=== PATIENT | male | born 2005 | race Caucasian/White ===

== ENCOUNTER 2023-01-12 15:49 | Emergency (ER) | payer BC, SELFPAY ==
[2023-01-12 15:55] VITALS: BP 142/79; PULSE 84; RESP 16; TEMP 37; O2SAT 97
--- NOTE | 2023-01-12 16:00 | DI.RAD_ITS ---
Exam(s) XR TIB/FIB RT EXAM: XR TIB/FIB RT CLINICAL HISTORY: fall, miller pain. TECHNIQUE: 2D digital imaging was performed of the right tibia and fibula. Four images were obtained . AP and lateral views were obtained. COMPARISON: No exams were available for comparison FINDINGS: BONES: No acute fracture is present. No bony destructive lesion is seen. Visualized portion of knee a nd ankle joints are unremarkable. SOFT TISSUE: Normal. IMPRESSION: Unremarkable radiographs of the right tibia and fibula. DATA REPOSITORY: RADIATION DOSE DELIVERED:
[2023-01-12] MEDS: Acetaminophen 325 MG TAB 650 MG PO (16:06)
--- NOTE | 2023-01-12 16:07 | ED.GENADUL_ITS ---
Discharge Plan Disposition Patient Disposition: Home Condition: Improving Discharge Details Chief Complaint: Orthopedic Clinical Impression: Contusion of leg Primary Care Provider: None,None ED Provider: Renan Chacon Home Meds and New Rx's Prescriptions: No Action No Known Home Meds Discharge Instructions Instructions: Contusion in Adults (ED) Additional Instructions: Continue with ice elevation, rest as needed, please follow-up with primary care physician. Medical Decision Making 17-year-old male presents with subacute injury to right miller, fell through a wooden step 3 days ago, evidence of ecchymosis anterior miller/tibial tuberosity, no joint laxity, neurovascular exam of limb intact, ambulatory without assistance. Likely contusion low suspicion for tibial plateau fracture or tibial fracture lower suspicion for knee dislocation, no evidence of ACL or PCL injury no evidence of lateral collateral ligament injury, no joint effusion. Will provide analgesia in the form of acetaminophen will obtain screening x-ray tib-fib. Likely home with follow-up as needed 17: 54 patient resting comfortably no acute distress. Likely soft tissue contusion. HPI General Date/Time Provider Initiated Documentation: 01/12/23 16:01 . HPI Narrative: 17-year-old male presents 3 days after falling through a wooden step, sustaining bruise to anterior miller right lower extremity, has been able to walk however does have discomfort Related Data Home Medications Medication Instructions Recorded Confirmed Unknown [No Known Home Meds] 01/12/23 01/12/23 Allergies Allergy/AdvReac Type Severity Reaction Status Date / Time No Known Allergies Allergy Unverified 01/12/23 16:00 General Stated Complaint: Orthopedic HAFSA: 4 Review of Systems Narrative: Review of Systems Constitutional: negative Eyes: negative ENT: negative Cardiovascular: negative Respiratory: negative Gastrointestinal: negative : negative Musculoskeletal: Leg pain Skin: negative Neurologic: negative Psych: negative PFSH All Active Problems (Updated 01/12/23 @ 17:55 by Renan Chacon MD) Contusion of leg (Acute) Social History Smoking/Tobacco Use Status: Current every day Tobacco Type: e-cigarettes Smoking risk assessment performed?: Yes Alcohol Intake: current Alcohol Intake frequency: a few times a month Drug use: Occasionally Substance use type: marijuana Do you feel safe at home: Yes Do you feel safe in your relationship?: Yes Exam Narrative Exam Narrative: Physical Examination General: alert, awake, cooperative, resting comfortably, no acute distress HEENT: normocephalic, atraumatic; PERRL, EOM intact, conjunctiva normal; no nasal discharge; moist mucous membranes, oral and pharyngeal mucosa normal, tolerating secretions Neck: supple, trachea midline; full ROM Chest: normal to inspection Respiratory: normal respiratory effort, speaking in full sentences, clear to auscultation, no wheezing, rales or rhonchi Cardiac: regular rate, regular rhythm, S1S2 intact, no murmurs rubs or gallops GI: abdomen soft, non-tender, non-distended; no palpable mass or hepatosplenomegaly Skin: See extremity Neuro: AAOx3, normal speech, moving all extremities Extremities: Subacute appearing ecchymosis to tibial tuberosity right lower extremity, full range of motion hip knee and ankle, ambulatory without assistance, no knee effusion, no joint laxity, warm well perfused extremity soft compartments. Psych: Appropriate mood and affect Course Vital Signs Vital signs: Vital Signs Temperature 37.0 C 01/12/23 15:55 Pulse 84 01/12/23 15:55 Respiratory Rate 16 01/12/23 15:55 Blood Pressure 142/79 H 01/12/23 15:55 Pulse Oximetry 97 01/12/23 15:55 Temperature 37.0 C 01/12/23 15:55 Temperature Source Oral 01/12/23 15:55 Pulse 84 01/12/23 15:55 Respiratory Rate 16 01/12/23 15:55 Respiratory Effort Normal 01/12/23 15:58 Blood Pressure 142/79 H 01/12/23 15:55 Blood Pressure Position Supine 01/12/23 15:55 Pulse Oximetry 97 01/12/23 15:55 Oxygen Delivery Method Room Air 01/12/23 15:55 Oxygen Flow Rate 0 01/12/23 15:55 Pain Level 4 01/12/23 15:58 PAWSS Have you Been Recently Intoxicated or Drunk Within the Last 30 days?: No Have you Ever Experienced Previous Episodes of Alcohol Withdrawal?: No Have you ever Experienced Withdrawal Seizures?: No Have you ever Experienced Delirium Tremens(DT)s?: No Have you ever undergone Alcohol Rehabilitation Treatment (i.e, inpt ot outpatient treatment programs)?: No Have you ever Experienced Blackouts?: No Have you ever Combined Alcohol with other Downers within the last 90 days?: No Have you ever Combined Alcohol with any other Substance of Abuse during the last 90 days?: No Result: 0
--- NOTE | 2023-01-12 16:28 | DI.VRAD_ITS ---
PROCEDURE INFORMATION: Exam: XR Right Tibia and Fibula Exam date and time: 01/12/2023 4:13 PM Age: 17 years old Clinical indication: Other: Fall, miller pain TECHNIQUE: Imaging protocol: Radiologic exam of the right tibia and fibula. Views: 2 views. COMPARISON: No relevant prior studies available. FINDINGS: Bones/joints: Normal. Soft tissues: Normal. IMPRESSION: No evidence for acute posttraumatic abnormality. Dictated and Authenticated by: Lelo Payton MD. Ordering:JENNY Urrutia MD
== END 2023-01-12 18:12 | disposition home or self-care (01) ==
PROVIDERS: Emergency Provider Emergency Medicine
DX: S80.11XA Contusion of right lower leg, initial encounter (principal); W10.9XXA Fall (on) (from) unspecified stairs and steps, initial encounter
CPT/HCPCS: 99283; 73590; 99284

== ENCOUNTER 2023-03-27 14:35 | Emergency (ER) | payer BC, SELFPAY ==
[2023-03-27 14:53] VITALS: BP 115/80; PULSE 82; RESP 16; TEMP 36.7; O2SAT 97
--- NOTE | 2023-03-27 16:31 | NUR.NOTE ---
Nursing Note: patient left without being seen
== END 2023-03-27 16:27 | disposition left against medical advice (07) ==
LOC: ER 15:00
DX: Z53.21 Procedure and treatment not carried out due to patient leaving prior to being seen by health care provider (principal)